=== PATIENT | female | born 1945 | race Caucasian/White ===

== ENCOUNTER 2017-05-21 14:56 | Emergency (ER) | payer OTHER, MEDICARE ==
[2017-05-21 15:03] VITALS: TEMP 98.1
--- NOTE | 2017-05-21 15:56 | EDPHY ---
HPI/HX/ROS/PE/MDM Narrative: CHIEF COMPLAINT: Bilateral lower extremity edema HPI: This patient is an obese 71 year old female complaining of swelling in her lower extremities for approximately the last few weeks. The swelling extends from her feet to her knees bilaterally. She has had swelling in her ankles and feet before with travel or prolonged standing, but not so severe as currently. Today, she experienced some mild shortness of breath with exertion and visited her primary care provider, Dr. Do. She was referred to the emergency department for further testing following this evaluation. She denies chest pain , abdominal pain, vomiting, or urinary complaints. No known history of heart of kidney problems. No fever, recent illness, or further complaints. REVIEW OF SYSTEMS: Aside from elements discussed in the HPI, a comprehensive 10-point review of systems was reviewed and is negative. PMH: Rosacea. SOCIAL HISTORY: . at bedside. Retired. Lives in [place]. PHYSICAL EXAM: General:Patient is obese, alert, in no acute distress. ENT:Eyes are normal to inspection. ENT inspection normal. Neck: Normal inspection. Full range of motion. Respiratory:No respiratory distress. Breath sounds normal bilaterally. Cardiovascular: Regular rate and rhythm. Strong peripheral pulses. Normal cap refill. Abdomen:The abdomen is nontender to palpation. There are no peritoneal signs. There are normal bowel sounds. Back: Normal to inspection. No tenderness to palpation. Skin: Normal color. No rash. Warm and dry. Extremities: Symmetric 3+ pedal edema bilaterally. Nontender. Full range of motion. Neuro: Oriented x3. Normal motor function. Normal sensory function. ED Course: 71 y/o female presents with bilateral lower extremity edema onset one week ago. Plan for EKG, chest x-ray, labs including CBC, chemistries, troponin, BNP, and liver. EKG was ordered and interpreted by myself. Please see G3 system for official reading. Chest x-ray shows cardiomegaly. Troponin negative. Labs otherwise unremarkable. 17:45 Reassessed patient. Discussed results. Plan to discharge home in good condition. She will follow up with her primary care provider on Wednesday. Referral to cardiology given, recommended echocardiogram and consult regarding diuretics. Plan to administer 20mg PO Lasix prior to departure. Return precautions discussed. The patient is comfortable with this plan. MDM: This patient presents with BLE edema. Her workup is negative for signs of ACS, PNA, liver failure or kidney disease. Her only abnormality is CXR which reveals cardiomegaly and possible pulmonary edema. Her BNP and troponin, however, are negative, as is her EKG. I think she would benefit from outpatient echo and likely diuretics, but I do not think she meets criteria for inpatient admission given negative labs, normal vitals and reassuring exam on room air. Given exam findings, I suspect this has been a fairly long-standing issue rather than an acute one. Certainly her cardiomegaly has likely not developed acutely, as her presentation would be much more severe. I considered starting the patient on diuretics, but would prefer to wait on outpatient echo to confirm diagnosis and establish hemodynamics. The patient is comfortable with his plan. I offered her admission to the hospital for telemetry observation and more urgent workup but she declines. I stressed importance of close follow-up with her physicians. - Data Points Imaging Results: Imaging Impressions Chest X-Ray 05/21/17 16:46 Impression: Cardiomegaly with features of congestive heart failure.. Imaging: I viewed and interpreted images myself Laboratory Results: Laboratory Results 05/21/17 16:11 05/21/17 16:11 05/21/17 05/21/17 16:11 16:11 WBC 11.96 10^3/uL H 10^3/uL (3.80-9.50) RBC 5.26 10^6/uL 10^6/uL (4.18-5.33) Hgb 16.6 g/dL H g/dL (12.6-16.3) Hct 49.6 % H % (38.0-47.0) MCV 94.3 fL fL (81.5-99.8) MCH 31.6 pg pg (27.9-34.1) MCHC 33.5 g/dL g/dL (32.4-36.7) RDW 13.2 % % (11.5-15.2) Plt Count 264 10^3/uL 10^3/uL (150-400) MPV 10.3 fL fL (8.7-11.7) Neut % (Auto) 70.9 % % (39.3-74.2) Lymph % (Auto) 19.1 % % (15.0-45.0) [place] % (Auto) 7.8 % % (4.5-13.0) Eos % (Auto) 1.3 % % (0.6-7.6) Baso % (Auto) 0.6 % % (0.3-1.7) Nucleat RBC Rel Count 0.0 % % (0.0-0.2) Absolute Neuts (auto) 8.48 10^3/uL H 10^3/uL (1.70-6.50) Absolute Lymphs (auto) 2.29 10^3/uL 10^3/uL (1.00-3.00) Absolute Monos (auto) 0.93 10^3/uL H 10^3/uL (0.30-0.80) Absolute Eos (auto) 0.15 10^3/uL 10^3/uL (0.03-0.40) Absolute Basos (auto) 0.07 10^3/uL 10^3/uL (0.02-0.10) Absolute Nucleated RBC 0.00 10^3/uL 10^3/uL (0-0.01) Immature Gran % 0.3 % % (0.0-1.1) Immature Gran # 0.04 10^3/uL 10^3/uL (0.00-0.10) Sodium 140 mEq/L mEq/L (135-145) Potassium 4.2 mEq/L mEq/L (3.5-5.2) Chloride 105 mEq/L mEq/L (97-110) Carbon Dioxide 22 mEq/l mEq/l (22-31) Anion Gap 13 mEq/L mEq/L (8-16) BUN 15 mg/dL mg/dL (7-23) Creatinine 0.8 mg/dL mg/dL (0.6-1.0) Estimated GFR > 60 Glucose 102 mg/dL H mg/dL (70-100) Calcium 9.9 mg/dL mg/dL (8.5-10.4) Total Bilirubin 0.6 mg/dL mg/dL (0.1-1.4) Conjugated Bilirubin 0.4 mg/dL mg/dL (0.0-0.5) Unconjugated Bilirubin 0.2 mg/dL mg/dL (0.0-1.1) AST 32 IU/L IU/L (14-46) ALT 29 IU/L IU/L (9-52) Alkaline Phosphatase 115 IU/L IU/L (38-126) Troponin I < 0.012 ng/mL ng/mL (0.000-0.034) NT-Pro-B Natriuret Pep 138 pg/mL H pg/mL (0-125) Total Protein 7.0 g/dL g/dL (6.3-8.2) Albumin 4.1 g/dL g/dL (3.5-5.0) General Time Seen by Provider: 05/21/17 15:55 Initial Vital Signs: Initial Vital Signs Temperature (C) 36.7 C 05/21/17 15:01 Heart Rate 88 05/21/17 15:01 Respiratory Rate 22 H 05/21/17 15:01 Blood Pressure 191/105 H 05/21/17 15:01 O2 Sat (%) 93 05/21/17 15:01 O2 Delivery Mode Room Air Allergies/Adverse Reactions: Latex, Natural Rubber Allergy (Verified 05/21/17 15:00) Sulfa (Sulfonamide Antibiotics) Allergy (Verified 05/21/17 15:00) Home Medications: Medication Instructions Recorded Oracea 05/21/17 Departure - Departure Disposition: Home, Routine, Self-Care Clinical Impression: Peripheral edema Condition: Good Instructions: Leg Edema (ED) Additional Instructions: 1. Follow up with your primary care physician on Wednesday. 2. Follow up with cardiology next week for further evaluation. 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 We recommend you get an echocardiogram and consider starting on a diuretic. 3. Return to the emergency department if you develop chest pain, shortness of breath, fever, calf pain or tenderness, fainting, or other worsening of condition. Referrals: Shu Suazo MD [Primary Care Provider] - As per Instructions Yolanda Norris MD [Medical Doctor] - As per Instructions Report Scribed for: Nadir Win Report Scribed by: Rubi Naylor Date of Report: 05/21/17 Time of Report: 15:56 Physician Review and Approval Statement: Portions of this note were transcribed by an ED scribe. I personally performed the history, physical exam, and medical decision making; and confirm the accuracy of the information in the transcribed note.
--- NOTE | 2017-05-21 16:35 | CPEKG ---
Heart Rate: 79 RR Interval: 759 P-R Interval: 168 QRSD Interval: 90 QT Interval: 400 QTC Interval: 459 P [place]: 39 QRS [place]: 41 T Wave [place]: 20 EKG Severity - BORDERLINE ECG - EKG Impression: SINUS RHYTHM EKG Impression: BORDERLINE T ABNORMALITIES, ANTERIOR LEADS Electronically Signed By: Alex Macias 24-May-2017 12:27:57
[2017-05-21 16:37] LABS: PLATELET COUNT 264 10^3/uL (150-400)
[2017-05-21] MEDS ORDERED: FUROSEMIDE 20 MG TAB PO ONE (17:50)
[2017-05-21 18:17] VITALS: BP 137/93; PULSE 75; RESP 18; O2SAT 93
== END 2017-05-21 18:27 | disposition home or self-care (01) ==
DX: R60.0 Localized edema (principal); Z91.040 Latex allergy status

== ENCOUNTER → 2017-05-25 | Outpatient (CLI) | payer OTHER, MEDICARE | LOC: FIMAGING 13:44 | PROVIDERS: ATTEND Internal Medicine | DX: R60.9 Edema, unspecified (principal) ==

== ENCOUNTER → 2017-08-06 | Outpatient (CLI) | payer OTHER, MEDICARE | LOC: BHFA 13:30 | PROVIDERS: ATTEND Internal Medicine Cardiovascular Disease | DX: R94.31 Abnormal electrocardiogram [ECG] [EKG] (principal) | CPT/HCPCS: 78452; 93017; A9500; J2785 ==

== ENCOUNTER → 2017-08-10 | Outpatient (CLI) | payer OTHER, MEDICARE | LOC: BHFA 14:00 | PROVIDERS: ATTEND Internal Medicine | DX: R60.9 Edema, unspecified (principal) ==

== ENCOUNTER 2017-10-04 03:50 | Observation (INO) | payer OTHER, MEDICARE ==
--- NOTE | 2017-10-04 03:56 | EDPHY ---
H & P Time Seen by Provider: 10/04/17 03:55 HPI/ROS: HPI CHIEF COMPLAINT: Multiple complaints including chest pressure, headache, pruritus, anxious HISTORY OF PRESENT ILLNESS: Patient is a 72-year-old female, she presents emergency room by private vehicle for o'clock the morning for multitude of complaints. She states approximately an hour ago she woke up she is unsure exactly what woke her up she states she has a frontal throbbing headache additionally she noticed some shortness of breath and chest pressure in the center of her chest, additionally her skin is been itching her. She reports she just on got back from [place]. She states she felt rather well know why. She does usually wear oxygen at night but has not been doing so. Her main complaint is a frontal throbbing headache currently 6/10. Additionally describes pressure sensation in her chest and heaviness. Distally shortness of breath with no cough and itchy skin. She does states she suffers from peripheral edema is been currently taking Lasix which is new for her. Otherwise does not take any other significant medications Additionally patient reports she felt very panicky. Past Medical History: Lymphedema, rosacea Past Surgical History: Hip surgery Social History: Denies drugs alcohol tobacco Family History: Noncontributory ROS REVIEW OF SYSTEMS: A comprehensive 10 point review of systems is otherwise negative aside from elements mentioned in the history of present illness. Exam Constitutional nontoxic appearing, obese, triage nursing summary reviewed, vital signs reviewed, awake/alert. Initial room air saturation a 86%. Eyes normal conjunctivae and sclera, EOMI, PERRLA. HENT normal inspection, atraumatic, moist mucus membranes, no epistaxis, neck supple/ no meningismus, no raccoon eyes. Respiratory clear to auscultation bilaterally, normal breath sounds, no respiratory distress, no wheezing. Cardiovascular rate normal, regular rhythm, no murmur, no edema, distal pulses normal. Gastrointestinal soft, non-tender, no rebound, no guarding, normal bowel sounds, no distension, no pulsatile mass. Genitourinary no CVA tenderness. Musculoskeletal bilateral lower extremity lymphedema, no midline vertebral tenderness, full range of motion, no calf swelling, no tenderness of extremities , no meningismus, good pulses, neurovascularly intact. Skin pink, warm, & dry, no rash, skin atraumatic. Neurologic awake, alert and oriented x 3, AAOx3, moves all 4 extremities equally, motor intact, sensory intact, CN II-XII intact, normal cerebellar, normal vision, normal speech. Psychiatric normal mood/affect. Heme/Lymph/Immune no lymphadenopathy. Differential Diagnosis: Includes but is not limited to in a particular order acute coronary syndrome, PE, pneumothorax, pneumonia, CHF, migraine headache, tension headache, intracranial bleed Medical Decision Making: Plan for this patient IV establishment rainbow of labs , EKG to rule out acute coronary syndrome, check troponin, chest x-ray, CT scan head without contrast re-evaluate. Re-evaluation: EKG interpretation by me on record in [facility] system. Impression time of EKG 4:04 a.m., sinus rhythm rate of 88 T-wave inversions noted lead 3 and AVF as well as V1 V2 V3 V4 subtle in V5. No ST elevation no significant ST depression ED x-ray chest: Cardiomegaly present. Patient's labs reviewed. CT scan head without contrast negative for acute bleed. Called to me by Dr. Rojas. CT angiogram of the chest: This shows no evidence of pulmonary embolism. Does show cardiomegaly bilateral lower lobe atelectasis. Called to me by Dr. Rojas CT angiogram of the chest was performed due to hypoxia, abnormal EKG with T- wave inversions rather diffusely, recent travel and obesity. Risk factors for PE. Considered. 0804: Further discussed with the patient at bedside they are comfortable being admitted reason for admission T-wave inversions in the EKG, additionally hypoxia down to 85%, and chest pressure/pain. Patient will need further cardiac evaluation with rule out. She has agreed for this. Spoke with the hospitalist service Dr. Ogden Accepts Source: Patient - Medical/Surgical History Hx Asthma: No Hx Chronic Respiratory Disease: No Hx Diabetes: No Hx Cardiac Disease: No Hx Renal Disease: No Hx Cirrhosis: No Hx Alcoholism: No Hx HIV/AIDS: No Hx Splenectomy or Spleen Trauma: No Other PMH: skin issues - Social History Smoking Status: Never smoked Constitutional: Initial Vital Signs Temperature (C) 36.6 C 10/04/17 03:58 Heart Rate 102 H 10/04/17 03:58 Respiratory Rate 16 10/04/17 03:58 Blood Pressure 150/104 H 10/04/17 03:58 O2 Sat (%) 86 L 10/04/17 03:58 O2 Delivery Mode Nasal Cannula O2 (L/minute) 2 Allergies/Adverse Reactions: Latex, Natural Rubber Allergy (Verified 05/21/17 15:00) Sulfa (Sulfonamide Antibiotics) Allergy (Verified 10/04/17 07:42) Hives Home Medications: Medication Instructions Recorded Doxycycline Monohydrate [Oracea] 40 mg PO DAILY 05/21/17 Furosemide [Lasix 20 MG (*)] 20 mg PO DAILY 10/04/17 Medical Decision Making - Data Points Laboratory Results: Laboratory Results 10/04/17 04:13 10/04/17 04:13 Medications Given: Discontinued Medications Aspirin Buffered (Aspirin Ec) 325 mg PO EDNOW ONE Stop: 10/04/17 05:28 Last Admin: 10/04/17 05:35 Dose: 325 mg Lorazepam (Ativan Injection) 0.5 mg IVP EDNOW ONE Stop: 10/04/17 04:07 Last Admin: 10/04/17 04:30 Dose: 0.5 mg Point of Care Test Results: Chemistry 10/04/17 04:57 POC Troponin I 0.00 ng/mL ng/mL (0.00-0.08) Departure - Departure Disposition: [facility] Inpatient Acute Clinical Impression: Hypoxia, Atelectasis, Cardiomegaly, Abnormal EKG Chest pain Qualifiers: Chest pain type: unspecified Qualified Code(s): R07.9 - Chest pain, unspecified Condition: Fair
[2017-10-04] MEDS ORDERED: LORazepam 2 MG/ML INJ IVP ONE (04:06)
[2017-10-04 04:20] LABS: PLATELET COUNT 246 10^3/uL (150-400)
[2017-10-04 04:28] LABS: INR 0.94 (0.83-1.16); PROTIME(PATIENT) 12.8 SEC (12.0-15.0)
--- NOTE | 2017-10-04 04:45 | CPEKG ---
Heart Rate: 88 RR Interval: 682 P-R Interval: 164 QRSD Interval: 96 QT Interval: 420 QTC Interval: 509 P [place]: 31 QRS [place]: 39 T Wave [place]: -25 EKG Severity - BORDERLINE ECG - EKG Impression: SINUS RHYTHM EKG Impression: BORDERLINE T ABNORMALITIES, DIFFUSE LEADS EKG Impression: BORDERLINE PROLONGED QT INTERVAL Electronically Signed By: Jalil Doherty 04-Oct-2017 08:07:32
[2017-10-04] MEDS ORDERED: IOPAMIDOL (ISOVUE 370) 100 ML BTL IV ONE (05:00)
[2017-10-04] MEDS ORDERED: ASPIRIN EC 325 MG TAB PO ONE (05:27)
[2017-10-04] MEDS ORDERED: PROMETHAZINE HCL 25 MG/ML INJ IVP PRN (09:25)
[2017-10-04] MEDS ORDERED: ALBUTEROL 3 ML DEYVIAL IH PRN (09:25)
[2017-10-04] MEDS ORDERED: ONDANSETRON 4 MG/2 ML VIAL IVP PRN (09:25)
[2017-10-04] MEDS ORDERED: ACETAMINOPHEN 325 MG TAB PO PRN (09:25)
[2017-10-04] MEDS ORDERED: oxyCODONE IR 5 MG TAB PO PRN (09:25)
[2017-10-04] MEDS ORDERED: ONDANSETRON DISINTEGRATING 4 MG TAB PO PRN (09:25)
--- NOTE | 2017-10-04 13:58 | PDGENHP ---
History and Physical - Chief Complaint chest pain - History of Present Illness 72 yo F with PMH of morbid obesity, MICHAEL as well as likely OHS presenting with chest pain waking her from sleep night prior to admission. She notes the pain was located over the left side of her chest, was persistent and only alleviated by meds given in the ER. It lasted hours, there was no radiation or associated sxs. She also notes that she recently traveled back from [place] where she did not use her nocturnal o2, she also did not resume o2 since arriving back home several days ago. She states since arrival the pain is gone, she has no shortness of breath since putting O2 on. She has noticed increased swelling in her bilateral lower extremities, right greater than left. She has chronic lower extremity swelling but it is currently worse than usual. She does not have increased pain in her lower extremities compared to baseline. History Information - Allergies/Home Medication List Allergies/Adverse Reactions: Latex, Natural Rubber Allergy (Verified 05/21/17 15:00) Sulfa (Sulfonamide Antibiotics) Allergy (Verified 10/04/17 07:42) Hives Home Medications: Doxycycline Monohydrate [Oracea] 40 mg PO DAILY 05/21/17 [Last Taken 10/03/17] Furosemide [Lasix 20 MG (*)] 20 mg PO DAILY 10/04/17 [Last Taken 10/03/17] I have personally reviewed and updated: family history, medical history, social history, surgical history - Past Medical History hyperlipidemia Additional medical history: MICHAEL. morbid obesity. chronic venous stasis with stasis dermatitis - Surgical History Additional surgical history: hip replacement. lap band surgery - Family History Positive for: non-pertinent - Social History Smoking Status: Never smoked Alcohol Use: Rarely Drug Use: None Review of Systems Review of Systems: ROS: 10pt was reviewed & negative except for what was stated in HPI & below Physical Exam Physical Exam: Temp Pulse Resp BP Pulse Ox 36.3 C 67 16 143/96 H 90 L 10/04/17 12:50 10/04/17 12:50 10/04/17 12:50 10/04/17 12:50 10/04/17 12:50 O2 (L/minute) 2.5 Constitutional: no apparent distress, obese Eyes: PERRL Ears, Nose, Mouth, Throat: moist mucous membranes, hearing normal Cardiovascular: regular rate and rhythym, no murmur, rub, or gallop, edema Respiratory: no respiratory distress, no rales or rhonchi Gastrointestinal: normoactive bowel sounds, soft, non-tender abdomen Skin: warm, erythema Musculoskeletal: full muscle strength Neurologic: AAOx3 Psychiatric: interacting appropriately, not anxious, not encephalopathic Lab Data & Imaging Review 10/04/17 04:13 10/04/17 04:13 WBC 10.85 10^3/uL (3.80-9.50) H 10/04/17 04:13 RBC 5.26 10^6/uL (4.18-5.33) 10/04/17 04:13 Hgb 16.5 g/dL (12.6-16.3) H 10/04/17 04:13 Hct 48.3 % (38.0-47.0) H 10/04/17 04:13 MCV 91.8 fL (81.5-99.8) 10/04/17 04:13 MCH 31.4 pg (27.9-34.1) 10/04/17 04:13 MCHC 34.2 g/dL (32.4-36.7) 10/04/17 04:13 RDW 12.9 % (11.5-15.2) 10/04/17 04:13 Plt Count 246 10^3/uL (150-400) 10/04/17 04:13 MPV 10.1 fL (8.7-11.7) 10/04/17 04:13 Neut % (Auto) 59.7 % (39.3-74.2) 10/04/17 04:13 Lymph % (Auto) 30.0 % (15.0-45.0) 10/04/17 04:13 [place] % (Auto) 7.3 % (4.5-13.0) 10/04/17 04:13 Eos % (Auto) 2.1 % (0.6-7.6) 10/04/17 04:13 Baso % (Auto) 0.6 % (0.3-1.7) 10/04/17 04:13 Nucleat RBC Rel Count 0.0 % (0.0-0.2) 10/04/17 04:13 Absolute Neuts (auto) 6.49 10^3/uL (1.70-6.50) 10/04/17 04:13 Absolute Lymphs (auto) 3.25 10^3/uL (1.00-3.00) H 10/04/17 04:13 Absolute Monos (auto) 0.79 10^3/uL (0.30-0.80) 10/04/17 04:13 Absolute Eos (auto) 0.23 10^3/uL (0.03-0.40) 10/04/17 04:13 Absolute Basos (auto) 0.06 10^3/uL (0.02-0.10) 10/04/17 04:13 Absolute Nucleated RBC 0.00 10^3/uL (0-0.01) 10/04/17 04:13 Immature Gran % 0.3 % (0.0-1.1) 10/04/17 04:13 Immature Gran # 0.03 10^3/uL (0.00-0.10) 10/04/17 04:13 PT 12.8 SEC (12.0-15.0) 10/04/17 04:13 INR 0.94 (0.83-1.16) 10/04/17 04:13 APTT 28.1 SEC (23.0-38.0) 10/04/17 04:13 D-Dimer 0.50 ug/mLFEU (0.00-0.50) 10/04/17 04:13 Sodium 141 mEq/L (135-145) 10/04/17 04:13 Potassium 3.8 mEq/L (3.3-5.0) 10/04/17 04:13 Chloride 105 mEq/L (97-110) 10/04/17 04:13 Carbon Dioxide 24 mEq/l (22-31) 10/04/17 04:13 Anion Gap 12 mEq/L (8-16) 10/04/17 04:13 BUN 13 mg/dL (7-23) 10/04/17 04:13 Creatinine 0.7 mg/dL (0.6-1.0) 10/04/17 04:13 Estimated GFR > 60 10/04/17 04:13 Glucose 129 mg/dL (70-100) H 10/04/17 04:13 Calcium 9.6 mg/dL (8.5-10.4) 10/04/17 04:13 Magnesium 2.0 mg/dL (1.6-2.3) 10/04/17 04:13 Total Bilirubin 0.7 mg/dL (0.1-1.4) 10/04/17 04:13 Conjugated Bilirubin 0.4 mg/dL (0.0-0.5) 10/04/17 04:13 Unconjugated Bilirubin 0.3 mg/dL (0.0-1.1) 10/04/17 04:13 AST 22 IU/L (14-46) 10/04/17 04:13 ALT 41 IU/L (9-52) 10/04/17 04:13 Alkaline Phosphatase 106 IU/L (38-126) 10/04/17 04:13 POC Troponin I 0.00 ng/mL (0.00-0.08) 10/04/17 04:57 Troponin I < 0.012 ng/mL (0.000-0.034) 10/04/17 12:50 NT-Pro-B Natriuret Pep 166 pg/mL (0-125) H 10/04/17 04:13 Total Protein 6.8 g/dL (6.3-8.2) 10/04/17 04:13 Albumin 4.0 g/dL (3.5-5.0) 10/04/17 04:13 Urine Color YELLOW 10/04/17 07:25 Urine Appearance CLEAR 10/04/17 07:25 Urine pH 5.0 (5.0-7.5) 10/04/17 07:25 Ur Specific [place] > 1.035 (1.002-1.030) H 10/04/17 07:25 Urine Protein NEGATIVE (NEGATIVE) 10/04/17 07:25 Urine Ketones NEGATIVE (NEGATIVE) 10/04/17 07:25 Urine Blood NEGATIVE (NEGATIVE) 10/04/17 07:25 Urine Nitrate NEGATIVE (NEGATIVE) 10/04/17 07:25 Urine Bilirubin NEGATIVE (NEGATIVE) 10/04/17 07:25 Urine Urobilinogen NEGATIVE EU (0.2-1.0) 10/04/17 07:25 Ur Leukocyte Esterase NEGATIVE (NEGATIVE) 10/04/17 07:25 Urine Glucose NEGATIVE (NEGATIVE) 10/04/17 07:25 Visualized and Interpreted imaging results: Yes Interpretation: Chest CTA: no PE, bilateral benign appearing nodules. Head CT: negative Visualized and Interpreted EKG results: Yes EKG Interpretation: Positive for: normal sinsus rhythm Assessment & Plan Assessment: 72 yo F with PMH of michael/ohs presenting with chest pain # chest pain: in the setting of increased lower extremity swelling and resolved with oxygen. Trop negative x 2, ech non ischemic. Monitoring on tele. Will obtain echocardiogram and monitor overnight. # acute on chronic hypoxic respiratory failure: with nocturnal hypoxia at baseline in the setting of michael/ohs. Has been non compliant with o2 since travelling to [place] and returning home. Echo to eval for cor pulmonale as above. No PE or other significant abnormalities on CTA. # chronic venous stasis: with chronic lower extremity edema and venous stasis dermatitis, will get US of RLE given asymetrical swelling. # morbid obesity: recommend lifestyle modification # michael/osh: as above, echo to eval for cor pulmonale # observation status Patient new to my care. Old records reviewed and summarized as above.
--- NOTE | 2017-10-04 15:35 | ECHO ---
[email or web address] [address] Main: [phone] Fax: [email or web address] Echocardiogram Name: SIERRA PIZANO MR#: [id number] Study Date: 10/04/2017 Study Time: 02:54 PM Date of : 1945 Age: 72 year(s) Height: 167.6 cm (66 in.) Weight: 134.72 kg (297 lb.) BSA: 2.37 m2 Gender: Female Examination: Limited Echo Indication: Chest Pain, lower extremity edema; Image Quality: Fair Contrast: Requested by: Blake Germain BP: 143 mmHg/98 mmHg Heart Rate: Rhythm: Indication: Chest Pain, lower extremity edema; Procedure Staff Clinical Athletic Instructor: Xiomara Pacheco [facility] Reading Physician: Ajay Christian MD Requesting Provider: Conclusions: Normal size left ventricle. Mild concentric LV hypertrophy. Normal global systolic LV function. EF is 61 %. No regional wall motion abnormality. Mildly dilated right ventricle. Pulmonary artery pressure is not obtained due to inadequate TR jet. Measurements: Chambers Valvular Assessment AV/MV Valvular Assessment TV/PV Normal Normal Normal Name Value Range Name Value Range Name Value Range IVSd (2D): 1.0 cm (0.6 cm-1.1 cm) LVDd (2D): 4.8 cm (3.9 cm-5.3 cm) LVDs (2D): 3.4 cm (2.1 cm-4 cm) LVPWd (2D): 1.1 cm ( - ) LVEF (BP): 61 % (>=55 %) Continued Measurements: Chambers Name Value TAPSE: 2.3 cm Findings: Left Ventricle: Patient: SIERRA PIZANO Study Date: 10/04/2017 Page 1 of 2 02:54 PM Normal size left ventricle. Mild concentric LV hypertrophy. Normal global systolic LV function. EF is 61 %. No regional wall motion abnormality. Right Ventricle: Mildly dilated right ventricle. No RV hypertrophy. Normal RV function. Tricuspid Valve: Pulmonary artery pressure is not obtained due to inadequate TR jet. (No Signature Object) Patient: SIERRA PIZANO Study Date: 10/04/2017 Page 2 of 2 02:54 PM [id number]
[2017-10-05 07:22] VITALS: BP 147/85
[2017-10-05] MEDS ORDERED: FUROSEMIDE 20 MG TAB PO SCH (09:00)
[2017-10-05] MEDS ORDERED: NON-FORMULARY NEW DRUG (Doxycycline Monohydrate [Oracea] 40 MG) PO SCH (09:00)
--- NOTE | 2017-10-05 09:04 | PDHOMEO2F ---
Home Oxygen Face to Face Home Orders: I certify that a physician or a nurse practitioner or physician's periodontal assistant has had a [id number] encounter with this patient on the date of this order due to the diagnosis listed, which relates to the primary reason the patient requires home oxygen. Alternative treatments have been tried, or considered, and deemed ineffective. It is anticipated that supplemental oxygen will result in improvement with treatment. Home oxygen qualifying diagnosis: kenan Home oxygen secondary diagnosis: OHS SpO2 on room air (%): 86 Frequency of home oxygen needed: continuous Home oxygen liters per minute: 2 Home oxygen delivery device: nasal cannula Concentrator: Yes E-tanks for mobility and back up: Yes If ordering portable O2, is the patient mobile in the home?: Yes I certify that, based on these findings, the home oxygen is medically necessary for this patient for the following length of time. Length of time home oxygen needed: 3 months
--- NOTE | 2017-10-05 09:05 | PDDCSUM ---
Discharge Summary Discharge Summary: Dates of service 10/04-10/05/17 Consultations: none Procedures performed: echocardiogram, RLE US Hospital course by problem: 72 yo F with PMH of kenan/ohs presenting with chest pain # chest pain: in the setting of increased lower extremity swelling and resolved with oxygen. Trop negative x 3, ecg non ischemic, no significant events on tele , echo without new wall motion abnormality and sxs resolved with o2. Suspect this is largely 2/2 next. # acute on chronic hypoxic respiratory failure: with nocturnal hypoxia at baseline in the setting of kenan/ohs. Has been non compliant with o2 since travelling to [place] and returning home. No PE or other significant abnormalities on CTA. Echo without pulm htn or decreased EF. Has been as low as 84% on RA while at rest and will dc home with supplemental o2 continuously. # chronic venous stasis: with chronic lower extremity edema and venous stasis dermatitis, asymetrical swelling but RLE without DVT. # morbid obesity: recommend lifestyle modification # kenan/osh: as above, echo to eval for cor pulmonale # observation status DC home f/u with PCP
--- NOTE | 2017-10-05 15:55 | ASMTLACE ---
[facility] Length of stay for Answers: 1 day current admission Acuity / Level of Answers: No Care: Did the patient have an inpatient admission? Comorbidities - select Answers: Other Notes: Lymphedema; Morbid all that apply obesity # of Emergency department Answers: 1-2 visits in the last 6 months Score: 3 Date Signed: 10/05/2017 03:55 PM Electronically Signed By:Lyssa Harley
== END 2017-10-05 13:29 | disposition home or self-care (01) ==
LOC: F2W 10:00
PROVIDERS: ADMIT Hospitalist; ATTEND Internal Medicine
DX: R07.9 Chest pain, unspecified (principal); J96.21 Acute and chronic respiratory failure with hypoxia; I87.2 Venous insufficiency (chronic) (peripheral); R22.43 Localized swelling, mass and lump, lower limb, bilateral; R94.31 Abnormal electrocardiogram [ECG] [EKG]; G47.33 Obstructive sleep apnea (adult) (pediatric); E66.01 Morbid (severe) obesity due to excess calories; Z68.42 Body mass index [BMI] 45.0-49.9, adult; Z91.19 Patient's noncompliance with other medical treatment and regimen; I51.7 Cardiomegaly; J98.11 Atelectasis; Z96.649 Presence of unspecified artificial hip joint; Z88.0 Allergy status to penicillin; Z91.040 Latex allergy status
CPT/HCPCS: 70450; 71045; 71275; 93005; 93308; 93971; 97161; G0378; G8978; G8979; G8980; J2060; Q9967; 84484-PO; 96374